=== PATIENT | male | born 1935 | race Asian ===

== ENCOUNTER 2016-07-10 08:24 | Emergency (ER) | payer MEDICARE, MEDICAID ==
[~2016-07-10] VITALS: Ht 172.7 cm; Wt 87.0 kg
[~2016-07-10 08:24] MED LIST: ACET-66 PO; ATOR20TA86 PO; FINA5TAB41 PO; FLUT16H NASAL; FLUT1DIS3 IH; HYDR25TA PO; MONT10TA21 PO; TIOT185 IH; UNK BP MED
[2016-07-10 10:15] VITALS: BP 0/0
== END 2016-07-10 11:32 | disposition expired ==
LOC: EMS 08:29
DX: I46.9 Cardiac arrest, cause unspecified (principal); I10 Essential (primary) hypertension; E78.00 Pure hypercholesterolemia, unspecified; J45.909 Unspecified asthma, uncomplicated
CPT/HCPCS: 92950; 99285